=== PATIENT | male | born 1955 | race African-American/Black ===

== ENCOUNTER 2019-03-05 05:43 | Inpatient (IN) | payer MEDICARE, MEDICAID ==
[~2019-03-05] VITALS: Ht 175.3 cm; Wt 68.0 kg
[2019-03-05] MEDS ORDERED: ALBUTEROL (0.083%) 2.5MG/3ML NEB HHN STA (06:42)
[2019-03-05] MEDS ORDERED: PREDNISONE 20MG TABLET PO STA (06:42)
[2019-03-05] MEDS ORDERED: IPRATROPIUM BROMIDE (0.02%) 0.5MG/2.5ML NEB HHN STA (06:42)
[2019-03-05 07:17] LABS: BASOPHILS % 0.6 % (0.0-2.0); EOSINOPHILS % 0.2 % (0.0-5.0); HEMATOCRIT. 54.3 % (42.0-52.0); LYMPHOCYTES % 34.2 % (20.0-50.0); MEAN CORPUSCULAR HEMOGLOBIN 31.9 pg (28.0-32.0); MEAN CORPUSCULAR VOLUME 96.3 fL (80.0-94.0); MEAN PLATELET VOLUME 8.4 fl (7.4-10.4); MONOCYTES % 11.6 % (2.0-8.0); NEUTROPHILS % 53.4 % (40.0-76.0); PLATELET 204 x1000/uL (130-400); RED BLOOD CELL COUNT 5.64 mill/uL (4.7-6.1); RED CELL DISTRIBUTION WIDTH 13.1 % (11.6-14.6)
[2019-03-05 07:24] LABS: CHLORIDE 103 mEq/L (98-107)
[2019-03-05] MEDS ORDERED: HYDRALAZINE 20MG/ML VIAL IV ONE (07:45)
[2019-03-05] MEDS ORDERED: OSELTAMIVIR 75MG CAPSULE PO ONE (08:45)
[2019-03-05 11:00] VITALS: BP 171/108
[2019-03-05 11:12] VITALS: BP 171/108
[2019-03-05] MEDS ORDERED: ACETAMINOPHEN 325MG TABLET PO PRN (11:30)
[2019-03-05] MEDS ORDERED: IPRATROPIUM/ALBUTEROL 0.5-3(2.5)MG/3ML NEB NEB PRN (11:30)
[2019-03-05] MEDS ORDERED: CLONIDINE 0.1MG TABLET PO PRN (11:30)
[2019-03-05] MEDS ORDERED: ONDANSETRON HCL 4MG/2ML INJ IV PRN (11:30)
[2019-03-05] MEDS ORDERED: DOCUSATE SODIUM 100MG CAPSULE PO PRN (11:30)
[2019-03-05] MEDS: METHYLPREDNISOLONE SOD SUCC 125 MG/2 ML VIAL IV SCH ×3 (12:08→23:53)
[2019-03-05] MEDS: AMLODIPINE 10MG TABLET PO SCH (12:09)
[2019-03-05] MEDS: LISINOPRIL 20MG TABLET PO SCH (12:09)
[2019-03-05] MEDS: ENOXAPARIN 40MG/0.4ML SYR SUBCUT SCH (12:10)
[2019-03-05 12:45] VITALS: BP 130/73
[2019-03-05] MEDS ORDERED: LEVOFLOXACIN 500MG PREMIX 100 ML IV SCH (13:00)
[2019-03-05] MEDS: CEFTRIAXONE 1 G PREMIX 50 ML IV SCH (13:53)
[2019-03-05] MEDS: NICOTINE 14MG PATCH TD SCH (13:53)
[2019-03-05] MEDS: IPRATROPIUM/ALBUTEROL 0.5-3(2.5)MG/3ML NEB NEB SCH ×2 (14:41→21:05)
[2019-03-05 15:32] LABS: CLARITY URINE CLOUDY (CLEAR); COLOR URINE DARK YELLOW (YELLOW); KETONES URINE TRACE (NEGATIVE); LEUKOCYTE ESTERASE URINE NEGATIVE (NEGATIVE); NITRITE URINE NEGATIVE (NEGATIVE); OCCULT BLOOD URINE NEGATIVE (NEGATIVE); PH URINE 5.5 (4.5-8.0); PROTEIN URINE 2+ (NEGATIVE); SPECIFIC GRAVITY URINE 1.027 (1.005-1.030)
[2019-03-05 15:55] LABS: *AMPHETAMINES SCREEN URINE NEGATIVE (NEGATIVE); *BARBITURATES SCREEN URINE NEGATIVE (NEGATIVE); *BENZODIAZEPINES SCREEN URINE NEGATIVE (NEGATIVE); *COCAINE SCREEN URINE PRESUMTIVE POSITIVE (NEGATIVE)
[2019-03-05] MEDS: AZITHROMYCIN 500 MG in DEXT 5% WATER 250 ML IV SCH (15:55)
[2019-03-05 15:56] LABS: CANNABINOID URINE SCREEN NEGATIVE (NEGATIVE); METHADONE URINE SCREEN NEGATIVE (NEGATIVE); OPIATES URINE SCREEN NEGATIVE (NEGATIVE); PHENCYCLIDINE URINE SCREEN NEGATIVE (NEGATIVE)
[2019-03-05 16:15] VITALS: BP 102/59
[2019-03-05 20:00] VITALS: BP 105/73
[2019-03-05] MEDS: OSELTAMIVIR 75MG CAPSULE PO SCH (21:41)
[2019-03-06] VITALS: BP 109/70
[2019-03-06] MEDS: IPRATROPIUM/ALBUTEROL 0.5-3(2.5)MG/3ML NEB NEB SCH ×4 (01:27→21:18)
[2019-03-06 04:00] VITALS: BP 129/88
[2019-03-06] MEDS: METHYLPREDNISOLONE SOD SUCC 125 MG/2 ML VIAL IV SCH (05:12)
[2019-03-06 06:30] LABS: BASOPHILS % 0.1 % (0.0-2.0); HEMATOCRIT. 49.1 % (42.0-52.0); HEMOGLOBIN. 16.5 g/dL (14.0-18.0); LYMPHOCYTES % 12.8 % (20.0-50.0); MEAN CORPUSCULAR HEMOGLOBIN 32.1 pg (28.0-32.0); MEAN CORPUSCULAR VOLUME 95.6 fL (80.0-94.0); MONOCYTES % 2.9 % (2.0-8.0); NEUTROPHILS % 84.2 % (40.0-76.0); PLATELET 224 x1000/uL (130-400); RED BLOOD CELL COUNT 5.13 mill/uL (4.7-6.1); RED CELL DISTRIBUTION WIDTH 12.8 % (11.6-14.6)
[2019-03-06 06:41] LABS: CHLORIDE 102 mEq/L (98-107)
[2019-03-06 07:02] LABS: HDL CHOLESTEROL 61 mg/dL (40-59); LDL CHOLESTEROL 32 mg/dL (5-100)
[2019-03-06 08:00] VITALS: BP 133/84
[2019-03-06 08:37] LABS: BG BASE EXCESS 8.9 mmol/L (-2.0-2.0); BG CARBOXYHEMOGLOBIN 1.8 % (0.5-1.5); BG DEOXYHEMOGLOBIN 5.1 % (0.0-5.0); BG FRACTION INSPIRED OXYGEN 28; BG HCO3 ACT 36.8 mmol/L (22.0-26.0); BG METHEMOGLOBIN 0.5 % (0.0-1.5); BG OXYGEN SATURATION 94.8 % (92.0-98.5); BG OXYHEMOGLOBIN 92.6 % (94.0-97.0); BG PCO2 61.6 mmHg (35.0-45.0); BG PH 7.394 (7.350-7.450); BG SAMPLE SITE RIGHT RADIAL; BG TOTAL HEMOGLOBIN 17.4 g/dL (12.0-18.0); BG VENT MODE NASAL CANNULA; BG VENT RATE 28 set
[2019-03-06] MEDS: LISINOPRIL 20MG TABLET PO SCH (08:55)
[2019-03-06] MEDS: OSELTAMIVIR 75MG CAPSULE PO SCH ×2 (08:55→21:41)
[2019-03-06] MEDS: NICOTINE 14MG PATCH TD SCH (08:56)
[2019-03-06] MEDS: AMLODIPINE 10MG TABLET PO SCH (08:56)
[2019-03-06] MEDS ORDERED: ZOLPIDEM TARTRATE 5MG TABLET PO PRN (11:30)
[2019-03-06 12:00] VITALS: BP 102/72
[2019-03-06] MEDS: CEFTRIAXONE 1 G PREMIX 50 ML IV SCH (12:09)
[2019-03-06] MEDS: ENOXAPARIN 40MG/0.4ML SYR SUBCUT SCH (12:09)
[2019-03-06] MEDS: METHYLPREDNISOLONE SOD SUCC 40 MG/ML VIAL IV SCH ×2 (14:53→21:41)
[2019-03-06] MEDS: AZITHROMYCIN 500 MG in DEXT 5% WATER 250 ML IV SCH (14:53)
[2019-03-06 16:00] VITALS: BP 104/63
[2019-03-06 20:00] VITALS: BP 108/78
[2019-03-06] MEDS: ACETYLCYSTEINE 100MG/ML 10% VIAL 4ML INH SCH (21:17)
[2019-03-06] MEDS: GUAIFENESIN 600MG ER TABLET PO SCH (21:41)
[2019-03-07] VITALS: BP 130/99
[2019-03-07 04:00] VITALS: BP 135/96
[2019-03-07] MEDS: METHYLPREDNISOLONE SOD SUCC 40 MG/ML VIAL IV SCH ×2 (06:33→14:32)
[2019-03-07 08:00] VITALS: BP 138/94
[2019-03-07] MEDS: ACETYLCYSTEINE 100MG/ML 10% VIAL 4ML INH SCH (08:46)
[2019-03-07] MEDS: IPRATROPIUM/ALBUTEROL 0.5-3(2.5)MG/3ML NEB NEB SCH ×2 (08:46→14:09)
[2019-03-07] MEDS ORDERED: MULTIVITAMINS,THER W-MINERALS TABLET PO SCH (09:00)
[2019-03-07] MEDS: GUAIFENESIN 600MG ER TABLET PO SCH (10:07)
[2019-03-07] MEDS: OSELTAMIVIR 75MG CAPSULE PO SCH (10:07)
[2019-03-07] MEDS: AMLODIPINE 10MG TABLET PO SCH (10:08)
[2019-03-07] MEDS: LISINOPRIL 20MG TABLET PO SCH (10:08)
[2019-03-07] MEDS: NICOTINE 14MG PATCH TD SCH (10:14)
[2019-03-07 12:00] VITALS: BP 119/77
[2019-03-07] MEDS: CEFTRIAXONE 1 G PREMIX 50 ML IV SCH (12:51)
[2019-03-07] MEDS: AZITHROMYCIN 500 MG in DEXT 5% WATER 250 ML IV SCH (12:51)
[2019-03-07] MEDS: ENOXAPARIN 40MG/0.4ML SYR SUBCUT SCH (12:51)
[2019-03-07 16:00] VITALS: BP 127/73
== END 2019-03-07 20:26 | disposition left against medical advice (07) | DRG 193 ==
LOC: ER 05:43 → 6WST 08:34 → ENRESERV 09:25
PROVIDERS: ADMIT Hospitalist; ATTEND Hospitalist
DX: J10.00 Influenza due to other identified influenza virus with unspecified type of pneumonia (principal); J96.00 Acute respiratory failure, unspecified whether with hypoxia or hypercapnia; J44.1 Chronic obstructive pulmonary disease with (acute) exacerbation; I10 Essential (primary) hypertension; F14.10 Cocaine abuse, uncomplicated; F17.210 Nicotine dependence, cigarettes, uncomplicated; Z82.49 Family history of ischemic heart disease and other diseases of the circulatory system
CPT/HCPCS: 36415; 36600; 71045; 80061; 80305; 81003; 82375; 82805; 83880; 84484; 87804; 93005; 93970; 94640; 94667; 97162; 99285; J0360; J0456; J0696; J1650; J1956; J2920; J2930; J7060; J7512; J7608; J7611; J7620

== ENCOUNTER 2019-12-16 08:02 | Emergency (ER) | payer MEDICAID, MEDICARE ==
[~2019-12-16] VITALS: Ht 175.3 cm; Wt 75.0 kg
[2019-12-16] MEDS ORDERED: KETOROLAC 60MG/2ML VIAL IM STA (08:24)
[2019-12-16] MEDS ORDERED: SODIUM CHLORIDE 0.9% 1,000 ML IV ONE (08:24)
[2019-12-16] MEDS ORDERED: ACETAMINOPHEN 500MG TABLET PO ONE (08:30)
[2019-12-16] MEDS ORDERED: ALBUTEROL 6.7GM HFA INHALER ORI ONE (09:00)
[2019-12-16 09:01] VITALS: BP 146/96
[2019-12-16 10:39] LABS: BASOPHILS % 1.2 % (0.0-2.0); EOSINOPHILS % 2.6 % (0.0-5.0); HEMATOCRIT. 54.8 % (42.0-52.0); HEMOGLOBIN. 18.1 g/dL (14.0-18.0); LYMPHOCYTES % 45.1 % (20.0-50.0); MEAN CORPUSCULAR HEMOGLOBIN 32.1 pg (28.0-32.0); MEAN CORPUSCULAR VOLUME 97.2 fL (80.0-94.0); MEAN PLATELET VOLUME 8.8 fl (7.4-10.4); MONOCYTES % 11.4 % (2.0-8.0); NEUTROPHILS % 39.7 % (40.0-76.0); PLATELET 238 x1000/uL (130-400); RED BLOOD CELL COUNT 5.64 mill/uL (4.7-6.1); RED CELL DISTRIBUTION WIDTH 13.3 % (11.6-14.6)
[2019-12-16 10:45] LABS: CHLORIDE 103 mEq/L (98-107)
== END 2019-12-16 11:23 | disposition home or self-care (01) ==
LOC: ER 08:02
DX: R05 Cough (principal); R06.02 Shortness of breath; R53.83 Other fatigue
CPT/HCPCS: 36415; 71045; 80053; 83880; 84484; 85025; 87635; 94640; 96360; 96361; 99284

== ENCOUNTER 2020-08-22 12:56 | Inpatient (IN) | payer MEDICARE ==
[~2020-08-22] VITALS: Ht 175.3 cm; Wt 85.3 kg
[2020-08-22] MEDS ORDERED: METHYLPREDNISOLONE SOD SUCC 125 MG/2 ML VIAL IV STA (13:09)
[2020-08-22] MEDS ORDERED: MAGNESIUM 2 G PREMIX 50 ML IV ONE (13:15)
[2020-08-22] MEDS ORDERED: ALBUTEROL (0.083%) 2.5MG/3ML NEB HHN SCH (13:30)
[2020-08-22] MEDS: IPRATROPIUM BROMIDE (0.02%) 0.5MG/2.5ML NEB HHN STA (13:42)
[2020-08-22 14:01] LABS: BASOPHILS % 0.9 % (0.0-2.0); EOSINOPHILS % 1.7 % (0.0-5.0); HEMATOCRIT. 55.1 % (42.0-52.0); LYMPHOCYTES % 37.4 % (20.0-50.0); MEAN CORPUSCULAR HEMOGLOBIN 32.2 pg (28.0-32.0); MEAN CORPUSCULAR VOLUME 98.4 fL (80.0-94.0); MEAN PLATELET VOLUME 8.7 fl (7.4-10.4); MONOCYTES % 9.6 % (2.0-8.0); NEUTROPHILS % 50.4 % (40.0-76.0); PLATELET 199 x1000/uL (130-400); RED CELL DISTRIBUTION WIDTH 13.7 % (11.6-14.6)
[2020-08-22] MEDS ORDERED: TERBUTALINE SULFATE 1MG/ML VIAL SUBCUT ONE (14:15)
[2020-08-22] MEDS ORDERED: ALBUTEROL (0.083%) 2.5MG/3ML NEB HHN STA (14:15)
[2020-08-22 14:19] LABS: CHLORIDE 106 mEq/L (98-107)
[2020-08-22] MEDS ORDERED: DOCUSATE SODIUM 100MG CAPSULE PO PRN (15:15)
[2020-08-22] MEDS ORDERED: MAGNESIUM/ALUMINUM HYDROXIDE/SIMETHICONE 30ML UDC PO PRN (15:15)
[2020-08-22] MEDS ORDERED: DIPHENHYDRAMINE 50MG/ML VIAL IV PRN (15:15)
[2020-08-22] MEDS ORDERED: ONDANSETRON HCL 4MG/2ML INJ IV PRN (15:15)
[2020-08-22] MEDS ORDERED: GUAIFENESIN 200MG/10ML SUGAR FREE UDC PO PRN (15:15)
[2020-08-22] MEDS ORDERED: HYDROCODONE/ACETAMINOPHEN 5/325MG TABLET PO PRN (15:15)
[2020-08-22] MEDS ORDERED: MORPHINE SULFATE 2 MG/ML CPJ (NOT FOR IM USE) IV PRN (15:15)
[2020-08-22] MEDS: ENOXAPARIN 40MG/0.4ML SYR SUBCUT SCH (16:00)
[2020-08-22] MEDS ORDERED: IOHEXOL-350 100 ML BOTTLE ONE (19:59)
[2020-08-22] MEDS: IPRATROPIUM BROMIDE (0.02%) 0.5MG/2.5ML NEB HHN SCH (20:04)
[2020-08-22 21:40] LABS: CLARITY URINE CLEAR (CLEAR); COLOR URINE DARK YELLOW (YELLOW); KETONES URINE NEGATIVE (NEGATIVE); LEUKOCYTE ESTERASE URINE NEGATIVE (NEGATIVE); NITRITE URINE NEGATIVE (NEGATIVE); OCCULT BLOOD URINE 1+ (NEGATIVE); PH URINE 5.5 (4.5-8.0); PROTEIN URINE 3+ (NEGATIVE); SPECIFIC GRAVITY URINE 1.027 (1.005-1.030)
[2020-08-22 21:50] VITALS: BP 161/92
[2020-08-22 21:55] LABS: *AMPHETAMINES SCREEN URINE NEGATIVE (NEGATIVE); *BARBITURATES SCREEN URINE NEGATIVE (NEGATIVE); *BENZODIAZEPINES SCREEN URINE NEGATIVE (NEGATIVE); *COCAINE SCREEN URINE PRESUMTIVE POSITIVE (NEGATIVE); METHADONE URINE SCREEN NEGATIVE (NEGATIVE); OPIATES URINE SCREEN NEGATIVE (NEGATIVE)
[2020-08-22 21:56] LABS: CANNABINOID URINE SCREEN NEGATIVE (NEGATIVE); PHENCYCLIDINE URINE SCREEN NEGATIVE (NEGATIVE)
[2020-08-22] MEDS: SODIUM CHLORIDE 0.9% INJ 3ML FLUSH IVF SCH (23:12)
[2020-08-22] MEDS: METHYLPREDNISOLONE SOD SUCC 125 MG/2 ML VIAL IV SCH (23:12)
[2020-08-22] MEDS: ACETAMINOPHEN 325MG TABLET PO PRN (23:57)
[2020-08-23 00:46] LABS: CREATINE KINASE 476 IU/L (39-308)
[2020-08-23 00:47] LABS: CREATINE KINASE MB FRACTION 14.4 ng/mL (0.5-3.6)
[2020-08-23 06:00] VITALS: BP 144/75
[2020-08-23] MEDS: METHYLPREDNISOLONE SOD SUCC 125 MG/2 ML VIAL IV SCH (06:00)
[2020-08-23] MEDS: SODIUM CHLORIDE 0.9% INJ 3ML FLUSH IVF SCH ×3 (06:00→22:00)
[2020-08-23 06:58] LABS: BASOPHILS % 0.1 % (0.0-2.0); HEMATOCRIT. 54.5 % (42.0-52.0); HEMOGLOBIN. 17.7 g/dL (14.0-18.0); LYMPHOCYTES % 11.6 % (20.0-50.0); MEAN CORPUSCULAR HEMOGLOBIN 32.3 pg (28.0-32.0); MEAN CORPUSCULAR VOLUME 99.4 fL (80.0-94.0); MEAN PLATELET VOLUME 9.1 fl (7.4-10.4); MONOCYTES % 2.5 % (2.0-8.0); NEUTROPHILS % 85.8 % (40.0-76.0); PLATELET 185 x1000/uL (130-400); RED BLOOD CELL COUNT 5.49 mill/uL (4.7-6.1); RED CELL DISTRIBUTION WIDTH 13.9 % (11.6-14.6)
[2020-08-23 07:11] LABS: CHLORIDE 102 mEq/L (98-107)
[2020-08-23 07:22] LABS: CREATINE KINASE 548 IU/L (39-308)
[2020-08-23 07:26] LABS: CREATINE KINASE MB FRACTION 17.8 ng/mL (0.5-3.6)
[2020-08-23 08:00] VITALS: BP 123/81
[2020-08-23 11:43] LABS: BG CARBOXYHEMOGLOBIN 0.9 % (0.5-1.5); BG DEOXYHEMOGLOBIN 2.4 % (0.0-5.0); BG HCO3 ACT 34.3 mmol/L (22.0-26.0); BG METHEMOGLOBIN 0.5 % (0.0-1.5); BG OXYGEN SATURATION 97.6 % (92.0-98.5); BG OXYHEMOGLOBIN 96.2 % (94.0-97.0); BG PCO2 82.4 mmHg (35.0-45.0); BG PH 7.237 (7.350-7.450); BG PO2 102.7 mmHg (75.0-100.0); BG SAMPLE SITE RIGHT RADIAL; BG TOTAL HEMOGLOBIN 18.2 g/dL (12.0-18.0); BG VENT MODE MASK - BIPAP
[2020-08-23 12:00] VITALS: BP 135/96
[2020-08-23] MEDS: PREDNISONE 20MG TABLET PO SCH ×3 (13:00→16:15)
[2020-08-23] MEDS: ENOXAPARIN 40MG/0.4ML SYR SUBCUT SCH (15:59)
[2020-08-23 16:00] VITALS: BP 134/94
[2020-08-23 20:00] VITALS: BP 162/90
[2020-08-23] MEDS: IPRATROPIUM BROMIDE (0.02%) 0.5MG/2.5ML NEB HHN SCH (21:00)
[2020-08-24] VITALS: BP 148/83
[2020-08-24] MEDS: ACETAMINOPHEN 325MG TABLET PO PRN ×2 (00:36→20:09)
[2020-08-24 04:00] VITALS: BP 163/98
[2020-08-24] MEDS: SODIUM CHLORIDE 0.9% INJ 3ML FLUSH IVF SCH ×3 (06:00→20:06)
[2020-08-24 07:01] LABS: BASOPHILS % 0.3 % (0.0-2.0); HEMATOCRIT. 55.9 % (42.0-52.0); HEMOGLOBIN. 17.7 g/dL (14.0-18.0); LYMPHOCYTES % 12.8 % (20.0-50.0); MEAN CORPUSCULAR HEMOGLOBIN 31.6 pg (28.0-32.0); MEAN CORPUSCULAR VOLUME 99.5 fL (80.0-94.0); MEAN PLATELET VOLUME 8.9 fl (7.4-10.4); MONOCYTES % 10.6 % (2.0-8.0); NEUTROPHILS % 76.3 % (40.0-76.0); PLATELET 195 x1000/uL (130-400); RED BLOOD CELL COUNT 5.61 mill/uL (4.7-6.1); RED CELL DISTRIBUTION WIDTH 13.6 % (11.6-14.6)
[2020-08-24 07:11] LABS: CHLORIDE 101 mEq/L (98-107)
[2020-08-24 08:00] VITALS: BP 141/102
[2020-08-24] MEDS: PREDNISONE 20MG TABLET PO SCH ×3 (08:16→16:02)
[2020-08-24] MEDS: SODIUM CHLORIDE 0.45% 1,000 ML IV SCH (10:00)
[2020-08-24 11:04] LABS: BG BASE EXCESS 1.5 mmol/L (-2.0-2.0); BG CARBOXYHEMOGLOBIN 0.2 % (0.5-1.5); BG DEOXYHEMOGLOBIN 1.3 % (0.0-5.0); BG FRACTION INSPIRED OXYGEN 100; BG HCO3 ACT 33.2 mmol/L (22.0-26.0); BG METHEMOGLOBIN 0.5 % (0.0-1.5); BG OXYGEN SATURATION 98.7 % (92.0-98.5); BG PCO2 84.6 mmHg (35.0-45.0); BG PH 7.211 (7.350-7.450); BG PO2 138.4 mmHg (75.0-100.0); BG SAMPLE SITE RIGHT BRACHIAL; BG TOTAL HEMOGLOBIN 18.1 g/dL (12.0-18.0); BG VENT MODE MASK - NRB
[2020-08-24 12:00] VITALS: BP 140/89
[2020-08-24] MEDS ORDERED: SODIUM POLYSTYRENE SULFONATE 15 G/60 ML BOT PO NR (12:00)
[2020-08-24 16:00] VITALS: BP 107/76
[2020-08-24] MEDS: ENOXAPARIN 40MG/0.4ML SYR SUBCUT SCH (16:02)
[2020-08-24 20:00] VITALS: BP 146/95
[2020-08-24] MEDS: AMLODIPINE 5MG TABLET PO SCH (20:05)
[2020-08-24] MEDS: CLONIDINE 0.1MG TABLET PO PRN (22:34)
[2020-08-25] VITALS (13 sets, daily range): BP systolic 119–179; BP diastolic 65–112
[2020-08-25] MEDS: IPRATROPIUM BROMIDE (0.02%) 0.5MG/2.5ML NEB HHN SCH ×4 (02:20→20:52)
[2020-08-25] MEDS: CLONIDINE 0.1MG TABLET PO PRN (04:50)
[2020-08-25 06:09] LABS: BASOPHILS % 0.2 % (0.0-2.0); HEMATOCRIT. 50.1 % (42.0-52.0); HEMOGLOBIN. 16.4 g/dL (14.0-18.0); LYMPHOCYTES % 21.3 % (20.0-50.0); MEAN CORPUSCULAR HEMOGLOBIN 32.1 pg (28.0-32.0); MEAN CORPUSCULAR VOLUME 98.1 fL (80.0-94.0); MEAN PLATELET VOLUME 8.9 fl (7.4-10.4); MONOCYTES % 8.7 % (2.0-8.0); NEUTROPHILS % 69.8 % (40.0-76.0); PLATELET 174 x1000/uL (130-400); RED BLOOD CELL COUNT 5.11 mill/uL (4.7-6.1); RED CELL DISTRIBUTION WIDTH 13.4 % (11.6-14.6)
[2020-08-25] MEDS: SODIUM CHLORIDE 0.9% INJ 3ML FLUSH IVF SCH ×3 (06:11→21:22)
[2020-08-25 07:57] LABS: CHLORIDE 99 mEq/L (98-107)
[2020-08-25] MEDS: PREDNISONE 20MG TABLET PO SCH ×3 (09:00→17:44)
[2020-08-25 09:01] LABS: BG BASE EXCESS 13.2 mmol/L (-2.0-2.0); BG CARBOXYHEMOGLOBIN 1.1 % (0.5-1.5); BG DEOXYHEMOGLOBIN 2.5 % (0.0-5.0); BG HCO3 ACT 44.7 mmol/L (22.0-26.0); BG METHEMOGLOBIN 0.5 % (0.0-1.5); BG OXYGEN SATURATION 97.5 % (92.0-98.5); BG OXYHEMOGLOBIN 95.9 % (94.0-97.0); BG PCO2 89.6 mmHg (35.0-45.0); BG PH 7.316 (7.350-7.450); BG PO2 94.2 mmHg (75.0-100.0); BG SAMPLE SITE RIGHT RADIAL; BG TOTAL HEMOGLOBIN 16.9 g/dL (12.0-18.0); BG VENT MODE NASAL CANNULA
[2020-08-25] MEDS: SODIUM CHLORIDE 0.45% 1,000 ML IV SCH (09:01)
[2020-08-25] MEDS: AMLODIPINE 5MG TABLET PO SCH ×2 (09:01→21:12)
[2020-08-25] MEDS: HYDRALAZINE 20MG/ML VIAL IV PRN (12:15)
[2020-08-25] MEDS: ENOXAPARIN 40MG/0.4ML SYR SUBCUT SCH (17:44)
[2020-08-26] VITALS (11 sets, daily range): BP systolic 105–165; BP diastolic 74–109
[2020-08-26] MEDS: IPRATROPIUM BROMIDE (0.02%) 0.5MG/2.5ML NEB HHN SCH ×4 (02:43→20:21)
[2020-08-26] MEDS ORDERED: LIDOCAINE HCL/PF 1% 2ML VIAL ONE (05:00)
[2020-08-26] MEDS: CLONIDINE 0.1MG TABLET PO PRN (05:46)
[2020-08-26] MEDS: SODIUM CHLORIDE 0.9% INJ 3ML FLUSH IVF SCH ×2 (06:00→15:13)
[2020-08-26 07:03] LABS: BASOPHILS % 0.3 % (0.0-2.0); HEMATOCRIT. 50.3 % (42.0-52.0); HEMOGLOBIN. 16.4 g/dL (14.0-18.0); MEAN CORPUSCULAR VOLUME 97.8 fL (80.0-94.0); MEAN PLATELET VOLUME 8.9 fl (7.4-10.4); MONOCYTES % 8.2 % (2.0-8.0); NEUTROPHILS % 64.5 % (40.0-76.0); PLATELET 169 x1000/uL (130-400); RED BLOOD CELL COUNT 5.15 mill/uL (4.7-6.1); RED CELL DISTRIBUTION WIDTH 13.3 % (11.6-14.6)
[2020-08-26 07:23] LABS: CHLORIDE 97 mEq/L (98-107)
[2020-08-26] MEDS ORDERED: LIDOCAINE HCL 1% 20ML VIAL (Pyxis) INJ ONE ×2 (08:07→10:13)
[2020-08-26] MEDS: PREDNISONE 20MG TABLET PO SCH ×2 (09:01→12:33)
[2020-08-26] MEDS: AMLODIPINE 5MG TABLET PO SCH ×2 (09:01→20:48)
[2020-08-26] MEDS: LOSARTAN POTASSIUM 25 MG TABLET PO SCH (09:46)
[2020-08-26] MEDS: SODIUM CHLORIDE 0.45% 1,000 ML IV SCH (10:00)
[2020-08-26 13:00] LABS: BG BASE EXCESS 10.1 mmol/L (-2.0-2.0); BG CARBOXYHEMOGLOBIN 0.8 % (0.5-1.5); BG DEOXYHEMOGLOBIN 2.4 % (0.0-5.0); BG FRACTION INSPIRED OXYGEN 35; BG HCO3 ACT 39.3 mmol/L (22.0-26.0); BG METHEMOGLOBIN 0.5 % (0.0-1.5); BG OXYGEN SATURATION 97.6 % (92.0-98.5); BG OXYHEMOGLOBIN 96.3 % (94.0-97.0); BG PCO2 70.3 mmHg (35.0-45.0); BG PH 7.365 (7.350-7.450); BG PO2 91.9 mmHg (75.0-100.0); BG SAMPLE SITE RIGHT RADIAL; BG TOTAL HEMOGLOBIN 17.4 g/dL (12.0-18.0); BG VENT MODE MASK - BIPAP
[2020-08-26] MEDS: FUROSEMIDE 40MG/4ML VIAL IVP SCH (15:13)
[2020-08-26] MEDS ORDERED: TERBUTALINE SULFATE 1MG/ML VIAL SUBCUT NR (16:30)
[2020-08-26] MEDS: METHYLPREDNISOLONE SOD SUCC 125 MG/2 ML VIAL IV SCH (17:11)
[2020-08-26] MEDS: ENOXAPARIN 40MG/0.4ML SYR SUBCUT SCH (17:12)
[2020-08-26] MEDS: LORAZEPAM 2MG/ML CPJ IV PRN (20:48)
[2020-08-27] VITALS (16 sets, daily range): BP systolic 133–171; BP diastolic 74–119
[2020-08-27] MEDS: IPRATROPIUM BROMIDE (0.02%) 0.5MG/2.5ML NEB HHN STA (01:08)
[2020-08-27] MEDS: IPRATROPIUM BROMIDE (0.02%) 0.5MG/2.5ML NEB HHN SCH ×4 (01:09→21:06)
[2020-08-27] MEDS: METHYLPREDNISOLONE SOD SUCC 125 MG/2 ML VIAL IV SCH ×3 (01:13→16:55)
[2020-08-27] MEDS: SODIUM CHLORIDE 0.9% INJ 3ML FLUSH IVF SCH ×4 (01:14→21:18)
[2020-08-27] MEDS: HYDRALAZINE 20MG/ML VIAL IV PRN ×2 (03:29→16:45)
[2020-08-27] MEDS: IPRATROPIUM/ALBUTEROL 0.5-3(2.5)MG/3ML NEB HHN PRN (06:11)
[2020-08-27 06:27] LABS: BASOPHILS % 0.1 % (0.0-2.0); HEMATOCRIT. 53.5 % (42.0-52.0); HEMOGLOBIN. 17.1 g/dL (14.0-18.0); LYMPHOCYTES % 11.4 % (20.0-50.0); MEAN CORPUSCULAR HEMOGLOBIN 31.1 pg (28.0-32.0); MEAN CORPUSCULAR VOLUME 97.2 fL (80.0-94.0); MONOCYTES % 2.7 % (2.0-8.0); NEUTROPHILS % 85.8 % (40.0-76.0); PLATELET 180 x1000/uL (130-400); RED CELL DISTRIBUTION WIDTH 13.1 % (11.6-14.6)
[2020-08-27 06:30] LABS: CHLORIDE 98 mEq/L (98-107)
[2020-08-27 06:39] LABS: CREATINE KINASE 154 IU/L (39-308)
[2020-08-27] MEDS: LORAZEPAM 2MG/ML CPJ IV PRN ×2 (07:50→13:14)
[2020-08-27] MEDS: AMLODIPINE 5MG TABLET PO SCH ×2 (08:48→21:18)
[2020-08-27] MEDS: FUROSEMIDE 40MG/4ML VIAL IVP SCH (08:48)
[2020-08-27] MEDS: LOSARTAN POTASSIUM 25 MG TABLET PO SCH (08:49)
[2020-08-27] MEDS: SODIUM CHLORIDE 0.45% 1,000 ML IV SCH (09:44)
[2020-08-27] MEDS: ENOXAPARIN 40MG/0.4ML SYR SUBCUT SCH (16:45)
[2020-08-27] MEDS ORDERED: LORAZEPAM 2MG/ML CPJ IV PRN (23:00)
[2020-08-28] VITALS (7 sets, daily range): BP systolic 109–159; BP diastolic 66–104
[2020-08-28] MEDS: METHYLPREDNISOLONE SOD SUCC 125 MG/2 ML VIAL IV SCH ×3 (02:11→17:00)
[2020-08-28] MEDS: IPRATROPIUM BROMIDE (0.02%) 0.5MG/2.5ML NEB HHN SCH ×3 (02:15→13:37)
[2020-08-28] MEDS: SODIUM CHLORIDE 0.9% INJ 3ML FLUSH IVF SCH ×2 (06:00→14:00)
[2020-08-28] MEDS: IPRATROPIUM/ALBUTEROL 0.5-3(2.5)MG/3ML NEB HHN PRN (07:49)
[2020-08-28] MEDS: LOSARTAN POTASSIUM 25 MG TABLET PO SCH (08:53)
[2020-08-28] MEDS: FUROSEMIDE 40MG/4ML VIAL IVP SCH (08:53)
[2020-08-28] MEDS: AMLODIPINE 5MG TABLET PO SCH (08:53)
[2020-08-28] MEDS: SODIUM CHLORIDE 0.45% 1,000 ML IV SCH (10:00)
[2020-08-28 10:29] LABS: BG BASE EXCESS 11.8 mmol/L (-2.0-2.0); BG DEOXYHEMOGLOBIN 5.7 % (0.0-5.0); BG FRACTION INSPIRED OXYGEN 30; BG HCO3 ACT 42.2 mmol/L (22.0-26.0); BG METHEMOGLOBIN 0.7 % (0.0-1.5); BG OXYGEN SATURATION 94.3 % (92.0-98.5); BG OXYHEMOGLOBIN 93.6 % (94.0-97.0); BG PCO2 74.5 mmHg (35.0-45.0); BG PH 7.371 (7.350-7.450); BG PO2 70.5 mmHg (75.0-100.0); BG SAMPLE SITE RIGHT BRACHIAL; BG TOTAL HEMOGLOBIN 19.7 g/dL (12.0-18.0); BG VENT MODE MASK - BIPAP
[2020-08-28] MEDS ORDERED: TERBUTALINE SULFATE 1MG/ML VIAL SUBCUT NR (11:00)
[2020-08-28] MEDS: ENOXAPARIN 40MG/0.4ML SYR SUBCUT SCH (17:48)
[2020-08-29] MEDS ORDERED: LOSARTAN POTASSIUM 50 MG TABLET PO SCH (09:00)
== END 2020-08-28 19:30 | DRG 189 ==
LOC: ER 12:56 → EDBEDREQ 14:19 → EDBEDREQTM 14:19 → EDBEDREQSVC 14:19 → 7WST 15:03 → EDBEDREQSVC 15:08 → EDBEDREQ 15:08 → EDBEDREQTM 15:08 → EDBEDREQSVC 17:34 → ENRESERV 19:24 → 5EST 08-24 21:40
PROVIDERS: ADMIT Internal Medicine; ATTEND Internal Medicine
PROC: 5A09457 Assistance with Respiratory Ventilation, 24-96 Consecutive Hours, Continuous Positive Airway Pressure (ICD-10-PCS; principal; 2020-08-22)
PROC: 5A09457 Assistance with Respiratory Ventilation, 24-96 Consecutive Hours, Continuous Positive Airway Pressure (ICD-10-PCS; 2020-08-25)
PROC: 02HV33Z Insertion of Infusion Device into Superior Vena Cava, Percutaneous Approach (ICD-10-PCS; 2020-08-26)
PROC: B548ZZA Ultrasonography of Superior Vena Cava, Guidance (ICD-10-PCS; 2020-08-26)
PROC: 5A09357 Assistance with Respiratory Ventilation, Less than 24 Consecutive Hours, Continuous Positive Airway Pressure (ICD-10-PCS; 2020-08-28)
DX: J96.01 Acute respiratory failure with hypoxia (principal); J44.1 Chronic obstructive pulmonary disease with (acute) exacerbation; E44.1 Mild protein-calorie malnutrition; E87.2 Acidosis; I42.9 Cardiomyopathy, unspecified; Z20.822 Contact with and (suspected) exposure to COVID-19; F14.10 Cocaine abuse, uncomplicated; E87.5 Hyperkalemia; I10 Essential (primary) hypertension; R74.01 Elevation of levels of liver transaminase levels; E78.5 Hyperlipidemia, unspecified; F17.210 Nicotine dependence, cigarettes, uncomplicated; Z91.19 Patient's noncompliance with other medical treatment and regimen; Z68.27 Body mass index [BMI] 27.0-27.9, adult; Y92.89 Other specified places as the place of occurrence of the external cause; Z71.51 Drug abuse counseling and surveillance of drug abuser; R60.0 Localized edema
CPT/HCPCS: 36415; 36600; 71045; 76937; 78580; 80048; 80053; 80305; 81003; 82375; 82550; 82553; 82805; 82962; 83735; 83880; 84443; 84484; 85025; 93005; 93306; 93970; 94640; 94660; 99291; C1725; C1892; C1893; J0360; J1200; J1650; J1940; J2060; J2930; J3105; J3475; J3490; J7040; J7512; Q9967; U0003